=== PATIENT | male | born 1950 | race Caucasian/White ===

== ENCOUNTER 2016-09-04 23:18 | Emergency (ER) | payer MEDICARE ==
[2016-09-04] MEDS ORDERED: Lasix 40 MG/4 ML ONE ×2 (23:23→23:42)
[2016-09-04] MEDS ORDERED: PROVENTIL 2.5 MG/3 ML NEB IH ONE ×2 (23:24→23:36)
[2016-09-04] MEDS ORDERED: Lasix 40 MG/4 ML IV ONE ×2 (23:24→23:41)
[2016-09-04] MEDS ORDERED: Zithromax 500 MG/ 250 ML NaCl Premix 250 ML IV ONE ×2 (23:24→23:51)
[2016-09-04] MEDS ORDERED: ROCEPHIN 1 Gm-D5w 50 ml Bag** 50 ML IV ONE ×2 (23:24→23:52)
[2016-09-04] MEDS ORDERED: Sodium Chloride 0.9% 1000 ML 1,000 ML IV SCH (23:30)
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
[2016-09-04 23:32] LABS: ARTERIAL BLD GAS O2 SATURATION 80.1 % (95-100); ARTERIAL BLOOD GAS FIO2 100 %; ARTERIAL BLOOD GAS pH 7.31 (7.35-7.45)
[2016-09-04 23:33] LABS: ARTERIAL BLOOD GAS PO2 46 mmHg (75-100)
[2016-09-04 23:51] LABS: BASOPHIL % 0.4 % (0.0-0.4); Eosinophil % 2.3 % (0.00-5.0); Granulocytes % 52.2 % (36.0-66.0); Lymphocytes % 37.7 % (24.0-44.0); Mean Cell Volume 80.7 fl (78-100); Mean Platelet Volume 11.6 fl (6-9.5); Monocytes % 7.4 % (0.0-12.0); Platelet Count 236 K/mm3 (150-450); Red Blood Count 5.85 M/mm3 (4.1-5.6); Red Cell Distribution Width 19.8 % (11.5-14.0); White Blood Count 9.8 K/mm3 (4.0-10.5)
[2016-09-04] MEDS ORDERED: Sodium Chloride 0.9% 1000 ML 1,000 ML ONE (23:52)
[2016-09-04 23:59] LABS: Mean Corpuscular Hemoglobin 25.4 pg (26-32)
[2016-09-05 00:07] LABS: A-aADO2 198; ALLEN TEST OK? YES; ARTERIAL BLD GAS O2 SATURATION 97.5 % (95-100); ARTERIAL BLOOD GAS BASE EXCESS -1.8 (-2.0-2.0); ARTERIAL BLOOD GAS FIO2 100 %; ARTERIAL BLOOD GAS PO2 466 mmHg (75-100); ARTERIAL BLOOD GAS pH 7.38 (7.35-7.45); BIPAP(E) 6; BIPAP(I) 16
[2016-09-05 00:08] LABS: LIPASE 210 U/L (73-393)
[2016-09-05 00:14] LABS: INR 2.72 (0.8-3.0); PROTIME 29.6 SECONDS (8.83-12.87)
[2016-09-05 00:17] LABS: PTT 49.1 SECONDS (24.1-36.1)
[2016-09-05 00:20] LABS: ALBUMIN 4.1 g/dL (3.4-5.0); ALKALINE PHOSPHATASE 108 U/L (46-116); ANION GAP 17.2 MEQ/L (5-15); BILIRUBIN,TOTAL 1.6 mg/dL (0.2-1.0); BLOOD UREA NITROGEN 28 mg/dL (9-20); CHLORIDE 101 mEq/L (98-107); Carbon Dioxide 24.3 mEq/L (21-32); Glucose 125 MG/DL (70-110); MAGNESIUM 2.4 mg/dL (1.8-2.4); Potassium 4.9 mEq/L (3.5-5.1); SGOT/AST 19 U/L (15-37); SGPT/ALT 32 U/L (12-78); SODIUM 138 mEq/L (136-145); Total Protein 8.1 gm/dL (6.4-8.2)
[2016-09-05 00:26] LABS: TROPONIN < 0.017 ng/ml (0.000-0.056)
[2016-09-05 01:23] LABS: COMPLETE URINE MICROSCOPIC? YES; Collection Type CATH
[2016-09-05 01:24] LABS: Bacteria FEW /HPF (NEGATIVE); Epithelial Cells MODERATE /HPF (FEW); Mucus SLIGHT /HPF (NEGATIVE)
[2016-09-05 03:32] VITALS: BP 94/65; PULSE 69; O2SAT 96
--- NOTE | 2016-09-05 09:22 | XRAY ---
Indication: Short of breath. Comparison: February 22, 2015. AP chest again demonstrates cardiomegaly, vascular congestion, pulmonary edema, and tiny bibasilar effusions less than before again favoring cardiac decompensation. Superimposed pneumonia not completely excluded. Stable left-sided AICD, osteopenia, and bony degenerative changes.
== END 2016-09-05 03:32 | disposition short-term general hospital (02) ==
LOC: ED 23:18
DX: J81.0 Acute pulmonary edema (principal); I10 Essential (primary) hypertension; R06.02 Shortness of breath; R14.0 Abdominal distension (gaseous); Z79.01 Long term (current) use of anticoagulants; Z79.899 Other long term (current) drug therapy; I25.2 Old myocardial infarction
CPT/HCPCS: 36000; 36415; 36600; 51702; 71010; 80053; 81000; 82150; 82375; 82803; 83690; 83735; 83880; 84484; 85025; 85610; 85730; 86308; 87040; 87070; 87430; 87631; 93005; 94002; 94640; 96360; 96361; 96365; 96366; 96368; 96374; 99285; 99291; J0456; J0696; J1940

== ENCOUNTER 2017-04-15 09:00 | Emergency (ER) | payer MEDICARE ==
[2017-04-15] MEDS ORDERED: DUONEB 0.5-3 MG/3 ml Neb IH ONE ×2 (09:10→09:11)
[2017-04-15] MEDS ORDERED: Lasix 40 MG/4 ML IV ONE (09:21)
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
[2017-04-15] MEDS ORDERED: Lasix 40 MG/4 ML ONE (09:27)
[2017-04-15 09:33] LABS: A-aADO2 75; ARTERIAL BLD GAS O2 SATURATION 97.1 % (95-100); ARTERIAL BLOOD GAS BASE EXCESS 2.4 (-2.0-2.0); ARTERIAL BLOOD GAS FIO2 50 %; ARTERIAL BLOOD GAS PO2 229 mmHg (75-100); ARTERIAL BLOOD GAS pH 7.42 (7.35-7.45)
[2017-04-15 09:35] LABS: ALLEN TEST OK? YES
[2017-04-15 09:47] LABS: BASOPHIL % 0.3 % (0.0-0.4); Eosinophil % 2.4 % (0.00-5.0); Granulocytes % 67.2 % (36.0-66.0); INR 1.99 (0.8-3.0); Lymphocytes % 22.2 % (24.0-44.0); Mean Cell Volume 85.1 fl (78-100); Mean Corpuscular Hemoglobin 25.7 pg (26-32); Mean Platelet Volume 11.6 fl (6-9.5); Monocytes % 7.9 % (0.0-12.0); PROTIME 22.3 SECONDS (8.83-12.87); Platelet Count 228 K/mm3 (150-450); Red Blood Count 4.98 M/mm3 (4.1-5.6); Red Cell Distribution Width 19.3 % (11.5-14.0); White Blood Count 6.2 K/mm3 (4.0-10.5)
[2017-04-15 09:56] LABS: ALBUMIN 4.3 g/dL (3.4-5.0); ANION GAP 14.3 MEQ/L (5-15); BILIRUBIN,TOTAL 1.8 mg/dL (0.2-1.0); Carbon Dioxide 27.7 mEq/L (21-32); Potassium 4.2 mEq/L (3.5-5.1)
--- NOTE | 2017-04-15 10:06 | XRAY ---
Indication: Short of breath. Comparison: September 05, 2016. Portable chest demonstrates borderline cardiomegaly with again CABG surgery and left-sided AICD. There is again vascular congestion, pulmonary edema, and tiny bibasilar effusions but less than before. Bony thorax intact again with mild osteopenia and degenerative changes. Impression: Radiographic features favoring cardiac decompensation. Superimposed pneumonia not completely excluded.
[2017-04-15 11:18] VITALS: BP 100/66; PULSE 72; O2SAT 100
== END 2017-04-15 11:43 | disposition home or self-care (01) ==
LOC: ED 09:00
DX: I50.9 Heart failure, unspecified (principal); Z95.4 Presence of other heart-valve replacement; I10 Essential (primary) hypertension; E78.00 Pure hypercholesterolemia, unspecified; Z79.899 Other long term (current) drug therapy; Z79.01 Long term (current) use of anticoagulants; I25.2 Old myocardial infarction
CPT/HCPCS: 36000; 36415; 36600; 51702; 71010; 80053; 82375; 82803; 83880; 84484; 85025; 85610; 87070; 87077; 93041; 94002; 94640; 96374; 99285; J1940; A9270-GY

== ENCOUNTER 2017-05-01 18:56 | Emergency (ER) | payer MEDICARE ==
[2017-05-01] MEDS ORDERED: solu-MEDROL 125 MG IV ONE (19:17)
[2017-05-01] MEDS ORDERED: DUONEB 0.5-3 MG/3 ml Neb IH ONE ×2 (19:17)
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
[2017-05-01 19:27] LABS: A-aADO2 96; ARTERIAL BLD GAS O2 SATURATION 87.5 % (95-100); ARTERIAL BLOOD GAS BASE EXCESS 0.2 (-2.0-2.0); ARTERIAL BLOOD GAS FIO2 28 %; ARTERIAL BLOOD GAS PO2 51 mmHg (75-100); ARTERIAL BLOOD GAS pH 7.39 (7.35-7.45); Lactic Acid 1.9 (0.4-2.0)
[2017-05-01] MEDS ORDERED: solu-MEDROL 125 MG ONE (19:34)
[2017-05-01 19:38] LABS: Mean Cell Volume 84.4 fl (78-100); Mean Platelet Volume 11.3 fl (6-9.5); Platelet Count 334 K/mm3 (150-450); Red Blood Count 5.91 M/mm3 (4.1-5.6); Red Cell Distribution Width 21.1 % (11.5-14.0); White Blood Count 10.7 K/mm3 (4.0-10.5)
[2017-05-01] MEDS ORDERED: Furosemide 100mg/10 ml Vial IV ONE (19:55)
[2017-05-01] MEDS ORDERED: Furosemide 100mg/10 ml Vial ONE (20:03)
[2017-05-01 20:13] LABS: ALBUMIN 4.5 g/dL (3.4-5.0); ANION GAP 16.4 MEQ/L (5-15); BILIRUBIN,TOTAL 1.6 mg/dL (0.2-1.0); Carbon Dioxide 26.4 mEq/L (21-32); MAGNESIUM 2.3 mg/dL (1.8-2.4); Total Protein 8.7 gm/dL (6.4-8.2)
[2017-05-01 20:18] LABS: INR 2.73 (0.8-3.0); PROTIME 30.7 SECONDS (8.83-12.87)
[2017-05-01 20:21] LABS: PTT 46.8 SECONDS (24.1-36.1)
[2017-05-01 20:52] LABS: Basophil 3 % (0.0-1.0); Eosinophil 4 % (0.00-3.0); Total Cells Counted 100
[2017-05-01 20:53] LABS: Platelet Estimate NORMAL (NORMAL)
[2017-05-01 21:13] VITALS: BP 125/71; PULSE 66; O2SAT 93
[2017-05-01 21:16] LABS: Bilirubin NEGATIVE (NEGATIVE); Blood 250 Ery/ul (0-5); COMPLETE URINE MICROSCOPIC? YES; Collection Type CCMS; Glucose NEGATIVE (NEGATIVE); Leukocyte Esterase 1+ (NEGATIVE)
[2017-05-01 21:17] LABS: ADD URINE CULTURE? YES (NO); Bacteria FEW /HPF (NEGATIVE); Epithelial Cells RARE /HPF (FEW); Mucus SLIGHT /HPF (NEGATIVE); WBC 25-50 /HPF (0-5)
--- NOTE | 2017-05-03 08:37 | XRAY ---
Exam: AP 80 semi-upright portable chest film from 1943 hrs. on 05/01/2017. Comparison: AP portable chest film from 04/15/2017. Indication: Shortness of breath. Findings: The transverse heart size appears borderline enlarged. There is evidence of prior CABG with midline sternotomy. Left-sided cardiac pacemaker is seen with bipolar leads in place representing no change. Diffuse bilateral vascular and interstitial congestion is seen with some early airspace disease at the right lung base which could represent pneumonic infiltrate or focal pulmonary edema. I see no significant pleural fluid blunting the lateral costophrenic angles. No pneumothorax is seen. No acute osseous process is evident. Impression: 1. Compared to the prior study of 04/15/2017, there has been a mild unfavorable change. I again note mild diffuse bilateral vascular and interstitial congestion. Some of the possibility be related to scarring. However, I now note some mild superimposed airspace disease at the right lung base. This could be due to pneumonia or focal pulmonary edema, perhaps due to CHF. Correlate clinically. No significant pleural fluid is seen. 2. Borderline cardiomegaly, status post sternotomy, and left-sided cardiac pacemaker are again seen.
== END 2017-05-01 21:45 | disposition short-term general hospital (02) ==
LOC: ED 18:56
DX: I50.9 Heart failure, unspecified (principal); J44.9 Chronic obstructive pulmonary disease, unspecified; R06.02 Shortness of breath; R05 Cough; R07.81 Pleurodynia; Z79.899 Other long term (current) drug therapy; I10 Essential (primary) hypertension; I25.2 Old myocardial infarction
CPT/HCPCS: 36000; 36415; 36600; 51702; 71010; 80053; 81000; 82375; 82803; 83605; 83735; 83880; 84484; 85025; 85610; 85730; 87040; 87086; 93005; 94002; 94640; 96374; 99285; J1940; J2930; A9270-GY